=== PATIENT | male | born 1975 | race Caucasian/White ===

== ENCOUNTER 2016-11-30 12:54 | Emergency (ER) | payer SELFPAY ==
[2016-11-30] MEDS ORDERED: Alum Hydrox/Mag Hydrox/Simeth 30 ML, Lidocaine 2% 15 ML PO ONE ×2 (13:53)
[2016-11-30] MEDS ORDERED: Ondansetron 4 MG/2 ML SDV IVPUSH ONE (13:53)
[2016-11-30] MEDS ORDERED: Sodium Chloride 0.9% 1,000 ML IV ONE (13:53)
[2016-11-30] MEDS ORDERED: Sodium Chloride 0.9% 10 ML Syringe FLUSH PRN ×2 (13:53→14:03)
[2016-11-30] MEDS ORDERED: Pantoprazole 40 MG Vial IVPUSH ONE (13:53)
[2016-11-30] MEDS ORDERED: HYDROmorphone 0.5 MG/0.5 ML Syringe IVPUSH ONE (14:01)
--- NOTE | 2016-11-30 14:02 | EDM.PDOC ---
ED HPI GI/ABDOMINAL - General Chief Complaint: Abdominal Pain Stated Complaint: ABDOMINAL PAIN Time Seen by Provider: 11/30/16 13:35 Source of Information: Reports: Patient History Limitations: Reports: No limitations - History of Present Illness INITIAL COMMENTS - FREE TEXT/NARRATIVE: This is a 41-year-old man who presents to the ED complaining of epigastric discomfort that started this past Monday. Pain has been constant steady rated 8 /10 worse with palpation and walking. Patient states he had diarrhea for the 1st 3 days with mild nausea and one episode of emesis. States his appetite has decreased but he remains able to eat. He states discomfort is not worsen with eating. States he can't sleep well secondary to the discomfort. States with discomfort taking a deep breath he has some mild shortness of breath. He is concerned it is related to his heart. Last bowel movement was today described as formed, soft, with no blood present. Denies any cough, fever/chills, bloody stools, melena, or diaphoresis. States he has a history of acid reflux and weaned herself off of the PPI. 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 Denies ever having EGD/colonoscopy or peptic ulcer. Timing/Duration: Reports: Constant, Waxing/waning Location: other (Epigastric) Quality: Reports: ache, stabbing Severity: severe (7/10) Worsens with: Reports: palpation, other (Taking deep breath) Context: Denies: sick contact, bad/questionable food, out of country travel, recent surgery, recent trauma, lifting, activity/exercise Associated Symptoms: Reports: diarrhea (History of), fever/chills, loss of appetite, malaise, nausea/vomiting (Mildly nauseated). Denies: chest pain, back pain, testicular pain, constipation, bloody stools Treatments [employer]LE[employer]: Reports: Other (see below) (None stated) - Related Data Allergies/ADRs: Allergies Allergy/AdvReac Type Severity Reaction Status Date / Time Penicillins Allergy Other Verified 11/30/16 13:11 Home Meds: Home Meds Sucralfate [Carafate] 1 gm PO TID #21 tablet 11/30/16 [Rx] Past Medical History - Past Surgical History GI Surgical History: Reports: Hernia, inguinal Social & Family History - Tobacco Use Smoking Status *Q: Never Smoker - Caffeine Use Caffeine Use: Reports: Coffee ED ROS GENERAL - Review of Systems Review Of Systems: See Below Constitutional: Reports: malaise, fatigue, decreased appetite. Denies: fever, chills Respiratory: Reports: Shortness of Breath. Denies: Wheezing, Cough, Sputum Cardiovascular: Denies: Chest pain, Dyspnea on exertion, Lightheadedness, Palpitations, Syncope (Presyncopal episode) GI/Abdominal: Reports: Abdominal pain, Diarrhea (History of), Decreased appetite , Nausea. Denies: Black stool, Bloody stool, Constipation, Distension, Flatus, Hematemesis, Melena, Vomiting Musculoskeletal: Denies: back pain Skin: Reports: no symptoms Neurological: Reports: Dizziness (Intermittent). Denies: Headache, Syncope ( Presyncope x1), Weakness ED EXAM, GI/ABD - Physical Exam Exam: See Below Exam Limited By: No limitations General Appearance: alert, WD/WN, mild distress Eyes: bilateral: normal appearance Ears: hearing grossly normal Nose: normal inspection Throat/Mouth: Normal voice, No airway compromise, Other (Moist oromucosa) Neck: normal inspection, supple Respiratory/Chest: no respiratory distress, lungs clear, normal breath sounds, no accessory muscle use, chest non-tender Cardiovascular: normal peripheral pulses, regular rate, rhythm, no edema, no JVD , no murmur GI/Abdominal: normal bowel sounds, soft, no organomegaly, no distention, tenderness (Epigastric region). No: McBurney's sign, Cruz's sign Back Exam: normal inspection. No: CVA tenderness (L), CVA tenderness (R) Extremities: normal inspection, non-tender Neurological: alert, oriented, CN II-XII intact, normal cognition, no motor/ sensory deficits Psychiatric: normal affect, normal mood Skin Exam: Warm, Dry, Intact, Normal color, No rash Course - Vital Signs Last Recorded V/S: Last Vital Signs Temp 98.5 F 11/30/16 13:16 Pulse 61 11/30/16 16:25 Resp 16 11/30/16 16:25 BP 109/57 L 11/30/16 16:25 Pulse Ox 99 11/30/16 16:25 - Orders/Labs/Meds Orders: Active Orders 24 hr Category Date Time Status EKG Documentation Completion [RC] STAT Care 11/30/16 13:53 Active Peripheral IV Care [RC] . DIRECTED Care 11/30/16 13:54 Active Peripheral IV Insertion Adult [OM.PC] Stat Oth 11/30/16 13:53 Ordered Labs: Laboratory Tests 11/30/16 11/30/16 Range/Units 13:53 14:20 WBC 11.02 H (4.23-9.07) K/mm3 RBC 5.15 (4.63-6.08) M/mm3 Hgb 15.5 (13.7-17.5) gm/L Hct 43.9 (40.1-51.0) % MCV 85.2 (79.0-92.2) fl MCH 30.1 (25.7-32.2) pg MCHC 35.3 (32.2-35.5) g/dl RDW Std Deviation 37.7 (35.1-43.9) fL Plt Count 279 (163-337) K/mm3 MPV 9.8 (9.4-12.3) fl Neut % (Auto) 75.6 H (34.0-67.9) % Lymph % (Auto) 15.9 L (21.8-53.1) % [place] % (Auto) 7.3 (5.3-12.2) % Eos % (Auto) 0.8 (0.8-7.0) Baso % (Auto) 0.2 (0.1-1.2) % Neut # (Auto) 8.34 H (1.78-5.38) K/mm3 Lymph # (Auto) 1.75 (1.32-3.57) K/mm3 [place] # (Auto) 0.80 (0.30-0.82) K/mm3 Eos # (Auto) 0.09 (0.04-0.54) K/mm3 Baso # (Auto) 0.02 (0.01-0.08) K/mm3 Sodium 138 (136-145) mEq/L Potassium 3.9 (3.5-5.1) mEq/L Chloride 103 (98-107) mEq/L Carbon Dioxide 25 (21-32) mEq/L Anion Gap 13.9 (5-15) BUN 12 (7-18) mg/dL Creatinine 1.0 (0.7-1.3) mg/dL Est Cr Clr Drug Dosing 104.54 mL/min Estimated GFR (MDRD) > 60 (>60) mL/min BUN/Creatinine Ratio 12.0 L (14-18) Glucose 98 (74-106) mg/dL Calcium 8.7 (8.5-10.1) mg/dL Total Bilirubin 0.7 (0.2-1.0) mg/dL AST 14 L (15-37) U/L ALT 24 (16-63) U/L Alkaline Phosphatase 54 (46-116) U/L Troponin I < 0.017 (0.00-0.056) ng/mL C-Reactive Protein 1.5 H* (<1.0) mg/dL Total Protein 7.1 (6.4-8.2) g/dl Albumin 4.0 (3.4-5.0) g/dl Globulin 3.1 gm/dL Albumin/Globulin Ratio 1.3 (1-2) Lipase 82 (73-393) U/L Meds: Medications Discontinued Medications Generic Name Dose Route Start Last Admin Trade Name Freq PRN Reason Stop Dose Admin Al Hydroxide/Mg Hydroxide 30 0 ml 11/30/16 13:53 11/30/16 14:33 ml/ Lidocaine HCl 15 ml PO 11/30/16 13:54 45 ml ONETIME ONE Administration Diatrizoate Meglum/Diatrizoate Sod 90 ml 11/30/16 14:03 11/30/16 15:21 Gastrografin 37% PO 11/30/16 14:04 90 ml ONETIME ONE Administration Hydromorphone HCl 0.5 mg 11/30/16 14:01 11/30/16 14:30 Dilaudid IVPUSH 11/30/16 14:02 0.5 mg ONETIME ONE Administration Sodium Chloride 1,000 mls @ 999 mls/hr 11/30/16 13:53 11/30/16 14:30 Normal Saline IV 11/30/16 14:53 999 mls/hr ONETIME ONE Administration Iopamidol 150 ml 11/30/16 14:03 11/30/16 15:21 Isovue-300 (61%) IVPUSH 11/30/16 14:04 150 ml ONETIME ONE Administration Ondansetron HCl 4 mg 11/30/16 13:53 11/30/16 14:29 Zofran IVPUSH 11/30/16 13:54 4 mg ONETIME ONE Administration Pantoprazole Sodium 40 mg 11/30/16 13:53 11/30/16 14:31 Protonix Iv IVPUSH 11/30/16 13:54 40 mg ONETIME ONE Administration Sodium Chloride 10 ml 11/30/16 13:53 11/30/16 14:33 Saline Flush FLUSH 10 ml ASDIRECTED PRN Administration Keep Vein Open Sodium Chloride 10 ml 11/30/16 14:03 11/30/16 15:21 Saline Flush FLUSH 10 ml ONETIME PRN Administration IV FLUSH - Re-Assessments/Exams Free Text/Narrative Re-Assessment/Exam: 11/30/16 14:01 Ordered peripheral IV with normal saline 999mls/hr, Zofran 4 mg IVP, GI cocktail by mouth, Dilaudid 0.5 mg IVP, CBC, CRP, lipase, EKG, troponin , chest x-ray, CT abdomen and pelvis with oral and IV contrast. CXR: Small metallic foreign body as described above. Nothing acute is identified a two-view chest x-ray. 1515 Reassessment, pain has decreased with dilaudid and GI cocktail. Unclear which medication improved it. 1545: Labs reviewed white blood cell count 11.02, neutrophil percentage 75.6, N # 8.34, sodium 138, potassium 3.9, creatinine 1.0, troponin less than 0.017, CRP 1.5, lipase 82 CT of the abdomen and pelvis: Impression: Spleen size is mildly enlarged with complaints of 15.2 cm, uncertain if this is pathological represents normal variant. Mild fatty infiltration within the liver. No additional abnormalities appreciated on CT study of the abdomen and pelvis. 1602 Reassessment, pain remains well controlled. Reexamination, mild pain to epigastric region. Will discharge patient home with instructions for gastritis. Departure - Departure Time of Disposition: 16:07 Disposition: Home, Self-Care 01 Condition: good Clinical Impression: Gastritis Qualifiers: Gastritis type: unspecified gastritis Chronicity: acute Gastritis bleeding: without bleeding Qualified Code(s): K29.00 - Acute gastritis without bleeding Prescriptions: Sucralfate [Carafate] 1 gm PO TID #21 tablet Instructions: Abdominal Pain, Adult, [id number] Referrals: PCP,Not In Area [Primary Care Provider] - Carmella Tse [Physician] - Forms: ED Department Discharge, Return to Work/School Form Additional Instructions: As discussed symptoms most likely related to gastritis. Will have you take Prilosec 40 mg every day half hour before eating breakfast in the morning for 2 weeks. Can also utilize Pepcid at night 4 hours prior to going to bed. Also provided Carafate which goes your stomach. Take 1 g 3 times a day as needed. Refrain from any spicy foods, caffeinated beverages, chocolate, or any other additional aggravating foods/drinks. Followup with a provider at [facility] in the next week for reevaluation and treatment. Refrain from driving today since receiving a sedative medication in the ED. Return to the ED for any new or worsening symptoms. - My Orders Last 24 Hours: My Active Orders 11/30/16 13:53 EKG Documentation Completion [RC] STAT Peripheral IV Insertion Adult [OM.PC] Stat 11/30/16 13:54 Peripheral IV Care [RC] . DIRECTED - Assessment/Plan Last 24 Hours: My Active Orders 11/30/16 13:53 EKG Documentation Completion [RC] STAT Peripheral IV Insertion Adult [OM.PC] Stat 11/30/16 13:54 Peripheral IV Care [RC] . DIRECTED
[2016-11-30] MEDS ORDERED: Iopamidol 612 MG/ML 150 ML Bottle IVPUSH ONE (14:03)
[2016-11-30] MEDS ORDERED: Diatrizoate Meglumine/Diatrizoate Sodium 37% 120 ML Bottle PO ONE (14:03)
--- NOTE | 2016-11-30 14:40 | CR ---
Chest: Two views of the chest were obtained. Comparison: No previous study. Heart size and mediastinum are normal. Lungs are clear. Small metallic density projected over the left upper chest most likely outside the lungs and representing soft tissue foreign body. Bony structures are within normal limits for the patient's age. Impression: 1. Small metallic foreign body as described above. 2. Nothing acute is identified on two-view chest x-ray. Diagnostic code #2
--- NOTE | 2016-11-30 15:45 | CT ---
CT abdomen and pelvis Technique: Multiple axial sections were obtained from above the dome of the diaphragm inferiorly through the pubic symphysis. Intravenous and oral contrast was utilized. Comparison: No previous study. Findings: Visualized lung bases shows nothing acute. Liver shows mild fatty infiltration. No focal abnormality is appreciated within the liver. Spleen is slightly enlarged with length of 14.2 cm. Adrenal glands show no nodule or mass. Pancreas is within normal limits. Kidneys show contrast-enhancement without hydronephrosis or mass. Gallbladder shows no calcified gallstones. Aorta shows no aneurysmal dilatation. No retroperitoneal adenopathy or mesenteric abnormalities are seen. No pelvic mass or adenopathy is seen. Delayed images shows contrast within the bladder. Appendix not visualized with certainty. No bowel dilatation is seen. No inflammatory change or free fluid is seen. Bone window settings were reviewed which appears within normal limits for the patient's age. Impression: 1. Spleen size is mildly enlarged with length of 14.2 cm. Uncertain if this is pathologic or represents normal variant. 2. Mild fatty infiltration within the liver. 3. No additional abnormality is appreciated on CT study of the abdomen and pelvis. Diagnostic code #2
[2016-11-30 16:49] VITALS: BP 109/57
== END 2016-11-30 16:25 | disposition home or self-care (01) ==
LOC: JD.ED 12:54
DX: K29.00 Acute gastritis without bleeding (principal); K21.9 Gastro-esophageal reflux disease without esophagitis; Z88.0 Allergy status to penicillin; Z79.899 Other long term (current) drug therapy
CPT/HCPCS: 36415; 71020; 74177; 80053; 83690; 84484; 85025; 86140; 93005; 96361; 96374; 96375; 99285; A9270; C9113; J1170; J2405; J7040; J7050; Q9963; Q9967; 99284